=== PATIENT | female | born 1955 | race Caucasian/White ===

== ENCOUNTER 2021-02-08 06:03 | Day surgery (SDC) | payer MEDICARE, MEDICAID ==
[2021-02-07 09:35] VITALS: BMI 18.1
[2021-02-08] MEDS ORDERED: PROPOFOL 200 MG/20 ML VIAL ONE (08:19)
== END 2021-02-08 10:00 | disposition short-term general hospital (02) ==
LOC: SDC 06:03
PROVIDERS: ATTEND Internal Medicine Gastroenterology
PROC: 0DJD8ZZ Inspection of Lower Intestinal Tract, Via Natural or Artificial Opening Endoscopic (ICD-10-PCS; principal; 2021-02-08)
DX: R19.5 Other fecal abnormalities (principal); E78.5 Hyperlipidemia, unspecified; I48.91 Unspecified atrial fibrillation; I50.9 Heart failure, unspecified; F79 Unspecified intellectual disabilities; D53.9 Nutritional anemia, unspecified; E03.9 Hypothyroidism, unspecified; Z79.82 Long term (current) use of aspirin; Z79.899 Other long term (current) drug therapy; Z88.8 Allergy status to other drugs, medicaments and biological substances
CPT/HCPCS: J2704

== ENCOUNTER 2022-06-20 08:47 | Day surgery (SDC) | payer MEDICARE, MEDICAID ==
[2022-06-19 09:37] VITALS: BMI 19.7
[2022-06-20] MEDS ORDERED: Ketorolac Tromethamine 30 MG/ML VIAL ONE (10:16)
[2022-06-20] MEDS ORDERED: fentaNYL Citrate/PF 100 MCG/2 ML SYRINGE ONE (12:15)
[2022-06-20] MEDS ORDERED: SUGAMMADEX SODIUM 200 MG/2 ML VIAL ONE ×2 (12:15→14:08)
[2022-06-20] MEDS ORDERED: CEFAZOLIN 2 GM VIAL ONE (12:41)
[2022-06-20] MEDS ORDERED: Sodium Chloride 0.9% 100 ML ONE (12:41)
[2022-06-20] MEDS ORDERED: PROPOFOL 200 MG/20 ML VIAL ONE (12:45)
[2022-06-20] MEDS ORDERED: Glycopyrrolate 0.2 MG/ML 5 ML SYRINGE ONE (12:45)
[2022-06-20] MEDS ORDERED: ePHEDrine 50 MG/ML VIAL ONE (12:45)
[2022-06-20] MEDS ORDERED: Dexamethasone 20 MG/5 ML VIAL ONE (12:45)
[2022-06-20] MEDS ORDERED: NEOSTIGMINE 3 MG/3 ML SYR 3 MG/3 ML SYRINGE ONE (12:45)
[2022-06-20] MEDS ORDERED: Rocuronium Bromide 10 MG/ML (10ML VIAL) ONE (12:45)
[2022-06-20] MEDS ORDERED: Ondansetron PF 4 MG/2 ML Vial ONE (12:45)
[2022-06-20] MEDS ORDERED: Bupivacaine/Epinephrine 0.25% 30 ML VIAL ONE (13:14)
[2022-06-20] MEDS ORDERED: HYDROcodone/Acetaminophen 5/325 mg Tablet ONE (15:32)
== END 2022-06-20 16:16 | disposition home or self-care (01) ==
LOC: SDC 08:47
PROVIDERS: ATTEND Specialist
PROC: 0FT44ZZ Resection of Gallbladder, Percutaneous Endoscopic Approach (ICD-10-PCS; principal; 2022-06-20)
DX: K80.10 Calculus of gallbladder with chronic cholecystitis without obstruction (principal); F73 Profound intellectual disabilities; M24.511 Contracture, right shoulder; M24.551 Contracture, right hip; M24.552 Contracture, left hip; M24.561 Contracture, right knee; M24.562 Contracture, left knee; I48.91 Unspecified atrial fibrillation; I50.9 Heart failure, unspecified; K21.9 Gastro-esophageal reflux disease without esophagitis; E03.9 Hypothyroidism, unspecified; I47.1 Supraventricular tachycardia; I73.9 Peripheral vascular disease, unspecified; Q21.20 Atrioventricular septal defect, unspecified as to partial or complete; D68.2 Hereditary deficiency of other clotting factors; M81.0 Age-related osteoporosis without current pathological fracture; Z86.718 Personal history of other venous thrombosis and embolism; Z87.820 Personal history of traumatic brain injury; Z79.82 Long term (current) use of aspirin; Z79.890 Hormone replacement therapy; Z79.899 Other long term (current) drug therapy; Z88.8 Allergy status to other drugs, medicaments and biological substances; Z93.1 Gastrostomy status; Z99.3 Dependence on wheelchair
CPT/HCPCS: 47562; C1713; 88304; C1889; J1100; J1885; J2405; J2704; J3490